=== PATIENT | female | born 1990 | race Caucasian/White ===

== ENCOUNTER 2016-07-08 20:47 | Emergency (ER) | payer MEDICAID ==
[2016-07-08 20:51] VITALS: TEMP 98.3
[2016-07-08 21:32] VITALS: BMI 21.0
--- NOTE | 2016-07-08 21:36 | EDPRACDOC ---
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 C/o l ankle pain with swelling. Denies LOC, vision changes, n/v, neck or back pain, numbness, foot or knee pain. Ankle Problem Location: Reports: Left, Lateral Mechanism: Reports: Unknown Circumstances: Reports: Fall, Spontaneous Able to Bear Weight: Limited Pain Severity: Reports: Mild, Moderate Associated Signs & Symptoms: Reports: Swelling ED Past Medical History - History Reviewed Yes Nurses notes reviewed and agree except as marked - Social Medical History Smoking Status: Light tobacco smoker (less than 5/day) ETOH: Social Substance Abuse: None EDM Review of Systems - Review of Systems Constitutional: No Symptoms Reported. negative: Fever, Chills, Weakness, Fatigue, Loss of Appetite Eyes: No Symptoms Reported. negative: Redness, Blurred Vision, Double Vision, Discharge, Pain, Light Sensitive, Photophobia Respiratory: No Symptoms Reported. negative: Cough, Brassy Cough, Barky Cough, Shortness of Breath, Wheezing, Hemoptysis Cardiovascular: No Symptoms Reported. negative: Chest Pain, Palpitations, Syncope, Edema, Orthopnea, PND, Skin Mottling, Cyanosis Gastrointestinal: No Symptoms Reported. negative: Pain, Constipation, Nausea, Vomiting, Diarrhea, Melena, Formula Intolerance Neurological: No Symptoms Reported. negative: Headache, Dizziness, Seizure, Numbness, Weakness, Speech Difficulty, Gait Difficulty Musculoskeletal: Ankle Integumentary: No Symptoms Reported. negative: Itching, Rash, Bruising, Wound Allergic/Immunologic: No Symptoms Reported. negative: Hives, Itching Hematologic: No Symptoms Reported. negative: Lymphadenopathy, Easy Bruising, Easy Bleeding Psychiatric: No Symptoms Reported. negative: Anxiety, Depression, Hallucinations, Insomnia, Suicidal - Physical Exam Constitutional: Alert Oriented to: Time, Person, Place Last recorded Vital Signs: Last Vital Signs Temp 98.3 F 07/08/16 20:50 Pulse 66 07/08/16 21:30 Resp 18 07/08/16 21:30 BP 130/58 L 07/08/16 21:30 Pulse Ox 96 07/08/16 21:30 Oxygen Pulse Oxygen Saturation 96 O2 Device Room Air Oxygen Flow Rate Fraction of Inspired Oxygen ( FIO2) - HEENT Head: Normal ( normocephalic) Eye Exam: Normal (PERRL, EOMI, Sclera white) - Respiratory/Cardiovascular Respiratory: Normal - CTA (BBS clear to auscultation without adventitious sounds ) Cardiovascular: Normal (RRR without murmur, gallop or rub) - Musculoskeletal Extremities: Normal (Normal tone, Pulses 2+ No cyanosis or edema, FROM) - Integumentary Skin: Normal, Warm, Dry Lymphatics: Normal (no adenopathy) - Neurologic Memory Impaired: Normal Motor Function: Normal (Normal tone, Pulses 2+ No cyanosis or edema, FROM) Mood Description: Normal Perception: Normal ED Ankle Problem Phys Exam - Musculoskeletal Ankle: Swelling, Mild Tenderness Achilles Tendon: Normal Knee: Normal Lower Leg: Normal Foot: Normal Distal Function/Circulation: Normal - Integumentary Skin: Normal (warm and dry) Lymphatics: Normal - Differential Diagnosis Contusion, Fracture, Sprain - Diagnostic Imaging Ankle Image interpreted by: Radiologist IMPRESSION: Lateral soft tissue edema without acute fracture. Decision Time to Discharge: 22:36 - Departure Disposition: Home Condition: Good Final Diagnosis: Left ankle sprain Qualifiers: Encounter type: initial encounter Involved ligament of ankle: unspecified ligament Qualified Code(s): S93.402A - Sprain of unspecified ligament of left ankle, initial encounter Instructions: Ankle Sprain (ED), RICE Therapy (ED) Education/Counseling Given To: Patient Education/Counseling Given Regarding: Diagnosis, Treatment, Follow Up Referrals: Jasmyn Lanier MD [Primary Care Provider] - One Week Robert Edmond MD [Staff Physician] - One Week Prescriptions: New Hydrocodone Bit/Acetaminophen [Lortab 5/325] 1 tab PO Q4-6H PRN #15 tab PRN Reason: Pain Ibuprofen 400 mg PO Q6H PRN #30 tablet PRN Reason: Pain
--- NOTE | 2016-07-08 22:06 | DIRPT ---
CLINICAL DATA: Fall down stairs tonight prior to arrival. Now with left lateral ankle pain and swelling. EXAM: LEFT ANKLE COMPLETE - 3+ VIEW COMPARISON: None. FINDINGS: No fracture or dislocation. The alignment and joint spaces are maintained. The ankle mortise is preserved. Lateral soft tissue edema. Questionable tiny tibiotalar joint effusion. IMPRESSION: Lateral soft tissue edema without acute fracture. Electronically Signed By: Melanie Zepeda M.D. On: 07/08/2016 22:03
[2016-07-08 22:55] VITALS: BP 126/62; PULSE 67
== END 2016-07-08 22:53 | disposition home or self-care (01) ==
LOC: EDMC 20:47
DX: S93.402A Sprain of unspecified ligament of left ankle, initial encounter (principal); W10.9XXA Fall (on) (from) unspecified stairs and steps, initial encounter; Y93.9 Activity, unspecified
CPT/HCPCS: 99283

== ENCOUNTER 2016-07-11 14:33 | Emergency (ER) | payer MEDICAID ==
[2016-07-11 15:23] VITALS: BP 120/59; PULSE 74; TEMP 98.1; BMI 21.9
--- NOTE | 2016-07-11 15:36 | EDPRACDOC ---
- General Information Stated Complaint: RASH Time Seen by Provider: 07/11/16 15:30 Home Medications: Home Medications Hydrocodone Bit/Acetaminophen [Lortab 5/325] 1 tab PO Q4-6H PRN #15 tab Ibuprofen 400 mg PO Q6H PRN #30 tablet 07/08/16 Acyclovir 800 mg PO 5XD #35 tablet 07/11/16 Ibuprofen 600 mg PO TID #20 tablet 07/11/16 Ondansetron HCl [Zofran] 4 mg PO Q6H PRN #20 tab 07/11/16 Oxycodone Immediate Release [Oxycodone Immediate Release (OxyIR)] 5 mg PO Q6H PRN #30 tab 07/11/16 ED Past Medical History - Social Medical History Smoking Status: Light tobacco smoker (less than 5/day) - Physical Exam Last recorded Vital Signs: Last Vital Signs Temp 98.1 F 07/11/16 15:22 Pulse 74 07/11/16 15:22 Resp 20 07/11/16 15:22 BP 120/59 L 07/11/16 15:22 Pulse Ox 99 07/11/16 15:22 Oxygen Pulse Oxygen Saturation 99 O2 Device Oxygen Flow Rate Fraction of Inspired Oxygen ( FIO2) Decision Time to Discharge: 15:37 - Departure Disposition: Home Condition: Stable Final Diagnosis: Shingles Qualifiers: Herpes zoster complications: without complications Qualified Code(s): B02.9 - Zoster without complications Instructions: Shingles (ED), Shingles Vaccine (ED) Education/Counseling Given To: Patient Education/Counseling Given Regarding: Diagnosis, Treatment, Follow Up Referrals: None,No Provider [Primary Care Provider] - One Week TREVOR PATEL [NonStaff] - One Week Prescriptions: New Acyclovir 800 mg PO 5XD #35 tablet Ibuprofen 600 mg PO TID #20 tablet Ondansetron HCl [Zofran] 4 mg PO Q6H PRN #20 tab PRN Reason: Nausea/Vomiting Oxycodone Immediate Release [Oxycodone Immediate Release (OxyIR)] 5 mg PO Q6H PRN #30 tab PRN Reason: Pain No Action Hydrocodone Bit/Acetaminophen [Lortab 5/325] 1 tab PO Q4-6H PRN #15 tab PRN Reason: Pain Ibuprofen 400 mg PO Q6H PRN #30 tablet PRN Reason: Pain Additional Instructions: TRY NOT TO TOUCH RASH. KEEP RASH COVERED. AVOID PEOPLE THAT ARE VERY OLD/ YOUNG, HAVE CANCER/DIABETES OR ARE .
== END 2016-07-11 15:54 | disposition home or self-care (01) ==
LOC: EDMC 14:33
DX: B02.9 Zoster without complications (principal)
CPT/HCPCS: 99282